=== PATIENT | male | born 1985 | race Caucasian/White ===

== ENCOUNTER → 2016-11-10 | Outpatient (CLI) | payer BC ==
[~2016-11-10] MED LIST: AMOX250S5 PO; HYDR118S PO; tetracaine lollipops PO
--- NOTE | 2016-11-10 09:57 | Diagnostic Imaging Report ---
EXAMINATION: Ultrasound of the aorta. INDICATION: Pulsatile feeling in the back while working out. FINDINGS: The proximal abdominal aorta is obscured. The mid abdominal aorta is 1.9 cm and the distal abdominal aorta is 1.3 cm in caliber. The right common iliac artery is 0.8 and the left common iliac artery is 0.8 cm in caliber. Color flow is demonstrated in the aorta and common iliac arteries. IMPRESSION: Unremarkable exam. Dictated by: Dictated on workstation # [id number]
== END ==
LOC: RAD 08:55
PROVIDERS: ATTEND Family Medicine
DX: D23.11 Other benign neoplasm of skin of right eyelid, including canthus (principal); R00.2 Palpitations
CPT/HCPCS: 76775

== ENCOUNTER → 2016-12-02 | Outpatient (CLI) | payer BC ==
--- NOTE | 2016-12-02 14:13 | Diagnostic Imaging Report ---
PROCEDURE: CT chest and abdomen without contrast. TECHNIQUE: Axial images were obtained from the thoracic inlet through the iliac crest without the administration of intravenous contrast. INDICATION: Atypical chest pain. FINDINGS: The unopacified thoracic aorta has a normal morphology and normal caliber and showed normal tapering distally. There is no mediastinal, pleural or pericardial hemorrhage or other fluid. The lungs and cells are clear. No mass or infiltrate. No pulmonary nodule. Hilar and mediastinal evaluation is limited by the absence of contrast. No findings to suggest adenopathy or abnormal soft tissue within the spaces. There is no thoracic calcified atherosclerotic disease. ABDOMEN: The abdominal aorta is of normal caliber. The vessel showed normal tapering distally in the common iliacs nonaneurysmal. Vascular patency cannot be addressed owing to the absence of contrast. The unopacified liver, gallbladder, spleen, adrenals, pancreas all negative. There is a 2 mm nonobstructing stone within a right renal upper pole calyx. The kidney is otherwise normal. There is no hydronephrosis. IMPRESSION: Normal appearance of the unopacified thoracoabdominal nonaneurysmal aorta. Nonobstructing right renal calculus. No acute appearing abnormality. Dictated by: Dictated on workstation # [id number]
== END ==
LOC: RAD 12:39
PROVIDERS: ATTEND Family Medicine
DX: R07.89 Other chest pain (principal)
CPT/HCPCS: 71250; 74150

== ENCOUNTER 2018-03-07 04:07 | Emergency (ER) | payer BC, OTHER ==
[~2018-03-07] VITALS: Ht 180.3 cm; Wt 86.2 kg
--- NOTE | 2018-03-07 04:25 | ED Chest Pain ---
General Chief Complaint: Chest Pain Stated Complaint: CP, LIGHTHEADED Nursing Triage Note: Pt c/o CP starting yesterday morning upon waking. Pt reports pain is in center/left chest. Pt states pain is worse when leaning forward and taking a deep breath. Nursing Sepsis Screen: No Definite Risk Source: patient Exam Limitations: no limitations History of Present Illness Date Seen by Provider: Mar 07, 2018 Time Seen by Provider: 04:10 Initial Comments C/O LEFT MID CHEST PAIN SINCE WAKING YESTERDAY MORNING STATES HE SAT UP AND LEANED FORWARD IN BED AND PAIN BEGAN PAIN HAS BEEN CONSTANT, AND IS MUCH WORSE WITH LEANING FORWARD OR TAKING A DEEP BREATH STATES "WHEN I LEAN FORWARD, IT FEELS LIKE MY HEART IS BEING CRUSHED" RATES PAIN 8/10 AT WORST, 3-4/10 CONSTANT. SLIGHT SHORTNESS OF BREATH SLIGHT LIGHTHEADEDNESS NO FEVER NO COUGH OR URI SYMPTOMS NO SWEATS NO SWELLING IN LEGS/ FEET OR PAIN IN CALVES HAD "LITTLE" PALPITATIONS--HAS HISTORY OF SAME FOR YEARS PT LATER STATES THAT HE "INJURED" HIS BACK LAST WEEK--DID HEAVY LIFTING ON WEDNESDAY, WEDNESDAY AND WEDNESDAY AND BACK WAS SORE TOOK 2 IBUPROFEN ON WEDNESDAY MORNING AND HIS BACK HAS BEEN FINE SINCE PT REPEATS THAT THIS PAIN IN HIS CHEST "COULDN'T BE RELATED" TO THAT Allergies and Home Medications Allergies Coded Allergies: NKANo Known Allergies (Verified Allergy, Unknown, 03/22/06) Home Medications Amoxicillin 250 Mg/5 Ml Susp.recon, 2 TSP PO BID, (Reported) Hydrocodone Bit/Acetaminophen 120 Ml Solution, 5-10 ML PO Q4H PRN, (Reported) Methylprednisolone 4 Mg Tab.ds.pk, 4 MG PO UD Prescribed by: LIV PENN on 03/07/18 0550 [tetracaine lollipops] , 0.5-1 % PO PRN, (Reported) Patient Home Medication List Home Medication List Reviewed: Yes Review of Systems Constitutional: see HPI EENTM: No Symptoms Reported Respiratory: See HPI, Shortness of Air Cardiovascular: See HPI, Chest Pain; Denies Edema, Denies Irregular Heart Rate ; Lightheadedness, Palpitations; Denies Syncope Gastrointestinal: No Symptoms Reported Genitourinary: No Symptoms Reported Musculoskeletal: see HPI Skin: no symptoms reported Psychiatric/Neurological: No Symptoms Reported Endocrine: No Symptoms Reported Hematologic/Lymphatic: No Symptoms Reported Past Rwwrrgt-Wvkbcn-Rluxxy Hx Patient Social History Alcohol Use: Rarely Uses Recreational Drug Use: No (THC "ONCE" ) Smoking Status: Never a Smoker Recent Foreign Travel: No Contact w/Someone Who Travel: No Recent Infectious Disease Expo: No Recent Hopitalizations: No Seasonal Allergies Seasonal Allergies: No Past Medical History Surgeries: No Respiratory: No Cardiac: No Neurological: Yes (HX SEIZURES, DOES NOT TAKE MEDICATION FOR THEM--FIRST SEIZURE 10 YEARS AGO, SELF DC'D MEDICATIONS AFTER A SHORT PERIOD OF TIME.STATES LAST SEIZURE WAS 7-8 YEARS AGO. ) Seizure Disorder Reproductive Disorders: No Sexually Transmitted Disease: No Gastrointestinal: No Musculoskeletal: No Endocrine: No HEENT: No Cancer: No Psychosocial: No Integumentary: No Blood Disorders: No Physical Exam Vital Signs Vital Signs - First Documented 03/07/18 04:11 Temp 95.5 Pulse 58 Resp 18 B/P (MAP) 156/101 (119) Pulse Ox 98 O2 Delivery Room Air Capillary Refill : Less Than 3 Seconds Height, Weight, BMI Height: 5'11.00" Weight: 190lbs. oz. 86.625394so; BMI Method:Stated General Appearance: No Apparent Distress, WD/WN, Other (DOESN OT APPEAR TO BE IN ANY DISCOMFORT WHATSOEVER) HEENT: PERRL/EOMI Neck: Full Range of Motion, Normal Inspection, Non Tender, Supple; No Carotid Bruit, No JVD Respiratory: Chest Non Tender, Normal Breath Sounds, No Accessory Muscle Use, No Respiratory Distress Cardiovascular: Regular Rate, Rhythm, No Edema, No JVD, No Murmur, Normal Peripheral Pulses Gastrointestinal: Normal Bowel Sounds, No Organomegaly, No Pulsatile Mass, Non Tender, Soft Extremity: Normal Capillary Refill, Normal Inspection, Normal Range of Motion, Non Tender, No Calf Tenderness, No Pedal Edema Neurologic/Psychiatric: Alert, Oriented x3, No Motor/Sensory Deficits, Normal Mood/Affect, 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 Skin: Normal Color, Warm/Dry Progress/Results/Core Measures Results/Orders Lab Results Laboratory Tests Test 03/07/18 04:19 Range/Units White Blood Count 6.1 4.3-11.0 10^3/uL Red Blood Count 4.72 4.35-5.85 10^6/uL Hemoglobin 14.8 13.3-17.7 G/DL Hematocrit 42 40-54 % Mean Corpuscular Volume 88 80-99 FL Mean Corpuscular Hemoglobin 31 25-34 PG Mean Corpuscular Hemoglobin Concent 36 32-36 G/DL Red Cell Distribution Width 13.1 10.0-14.5 % Platelet Count 153 130-400 10^3/uL Mean Platelet Volume 10.1 7.4-10.4 FL Neutrophils (%) (Auto) 42 42-75 % Lymphocytes (%) (Auto) 43 12-44 % Monocytes (%) (Auto) 9 0-12 % Eosinophils (%) (Auto) 5 0-10 % Basophils (%) (Auto) 0 0-10 % Neutrophils # (Auto) 2.6 1.8-7.8 X 10^3 Lymphocytes # (Auto) 2.6 1.0-4.0 X 10^3 Monocytes # (Auto) 0.5 0.0-1.0 X 10^3 Eosinophils # (Auto) 0.3 0.0-0.3 10^3/uL Basophils # (Auto) 0.0 0.0-0.1 10^3/uL Prothrombin Time 13.4 12.2-14.7 SEC INR Comment 1.0 0.8-1.4 Activated Partial Thromboplast Time 30 24-35 SEC Sodium Level 140 135-145 MMOL/L Potassium Level 4.3 3.6-5.0 MMOL/L Chloride Level 106 98-107 MMOL/L Carbon Dioxide Level 24 21-32 MMOL/L Anion Gap 10 5-14 MMOL/L Blood Urea Nitrogen 19 H 7-18 MG/DL Creatinine 1.11 0.60-1.30 MG/DL Estimat Glomerular Filtration Rate > 60 BUN/Creatinine Ratio 17 Glucose Level 88 70-105 MG/DL Calcium Level 9.7 8.5-10.1 MG/DL Magnesium Level 2.3 1.8-2.4 MG/DL Total Bilirubin 0.5 0.1-1.0 MG/DL Aspartate Amino Transf (AST/SGOT) 20 5-34 U/L Alanine Aminotransferase (ALT/SGPT) 18 0-55 U/L Alkaline Phosphatase 57 40-136 U/L Total Creatine Kinase 81 30-200 U/L Creatine Kinase MB 0.9 <6.6 NG/ML Troponin I < 0.30 <0.30 NG/ML B-Type Natriuretic Peptide < 10.0 <100.0 PG/ML Total Protein 7.1 6.4-8.2 GM/DL Albumin 4.7 H 3.2-4.5 GM/DL Amylase Level 57 25-125 U/L Lipase 27 8-78 U/L My Orders Orders - ISAMARLIV Collado Amylase (03/07/18 04:20) Cbc With Automated Diff (03/07/18 04:20) Comprehensive Metabolic Panel (03/07/18 04:20) Creatine Kinase (03/07/18 04:20) Creatine Kinase Mb (03/07/18 04:20) Lipase (03/07/18 04:20) Partial Thromboplastin Time (03/07/18 04:20) Protime With Inr (03/07/18 04:20) Troponin I (03/07/18 04:20) Chest 1 View, Ap/Pa Only (03/07/18 04:20) Ekg Tracing (03/07/18 04:20) Aspirin Chewable Tablet (Baby Aspirin Ch (03/07/18 04:30) BNP (03/07/18 04:20) Monitor-Rhythm Ecg Trace Only (03/07/18 04:20) Magnesium (03/07/18 04:20) Ct Angio Chest W (03/07/18 04:26) Ketorolac Injection (Toradol Injection) (03/07/18 04:45) Iohexol Injection (Omnipaque 350 Mg/Ml 1 (03/07/18 05:30) Ns (Ivpb) (Sodium Chloride 0.9%) (03/07/18 05:30) Medications Given in ED Current Medications Medications Dose Ordered Sig/Merlin Route Start Time Stop Time Status Last Admin Dose Admin Aspirin 324 mg ONCE ONCE PO 03/07/18 04:30 03/07/18 04:31 DC 03/07/18 04:28 324 MG Iohexol 150 ml ONCE ONCE IV 03/07/18 05:30 03/07/18 05:31 DC 03/07/18 05:27 125 ML Sodium Chloride 250 ml ONCE ONCE IV 03/07/18 05:30 03/07/18 05:31 DC 03/07/18 05:27 80 ML Vital Signs/I&O 03/07/18 03/07/18 03/07/18 04:11 04:11 06:10 Temp 95.5 95.5 Pulse 58 53 Resp 18 18 B/P (MAP) 156/101 (119) 114/83 (119) Pulse Ox 98 98 O2 Delivery Room Air Room Air Room Air Blood Pressure Mean: 119 Progress Progress Note : Progress Note REFUSED TORADOL OR ANY PAIN MEDICATIONS, STATES HE "DIDN'T WANT TO HURT ANYTHING IF HE MOVED AND NOT FEEL IT" AT DISMISSAL, PT NOW STATES HE HAS HAD "SHARP PAINS THAT FEEL LIKE SOMETHING IS RIPPING APART" IN HIS CHEST "IN MY HEART" WHEN HE LEANS OVER OR TAKES A DEEP BREATH "HIS WHOLE LIFE" BUT THIS HAS LASTED LONGER THAN NORMAL--NORMALLY LASTS "15-30 SECONDS AT A TIME" HAS ALSO HAD "PALPITATIONS" "ALL HIS LIFE" HAS NEVER SOUGHT CARE FOR THESE PROBLEMS Initial ECG Impression Date: Mar 07, 2018 Initial ECG Impression Time: 04:17 Initial ECG Rate: 54 Initial ECG Rhythm: Normal Sinus Initial ECG Comparisson: No Previous ECG Available Diagnostic Imaging Comments CXR--NO ACUTE PROCESS, PENDING RADIOLOGIST REVIEW CT CHEST ANGIOGRAM--NO P.E. OR OTHER ACUTE PROCESS, PER [facility] VIA FAX @ [phone] Reviewed: Reviewed by Me Departure Impression Primary Impression: Chest pain Disposition: 01 HOME, SELF-CARE Condition: Stable Departure-Patient Inst. Referrals: FACUNDO PENA MD (PCP/Family) Primary Care Physician Patient Instructions: Chest Pain That Is Not Caused by the Heart (DC), Pleuritic Chest Pain (DC), Chest Pain (DC) Add. Discharge Instructions: HOME, REST FOLLOW UP WITH DR. PENA IN 1-2 DAYS FOR FURTHER CARE RETURN TO ER IF WORSE All discharge instructions reviewed with patient and/or family. Voiced understanding. Scripts Methylprednisolone (Medrol) 4 Mg Tab.ds.pk 4 MG PO UD, #1 PKG Prov: LIV PENN DO 03/07/18 LIV PENN DO Mar 07, 2018 04:25
[2018-03-07 04:30] LABS: BASOPHILS % (AUTO) 0 % (0-10); EOSINOPHILS # (AUTO) 0.3 10^3/uL (0.0-0.3); EOSINOPHILS % (AUTO) 5 % (0-10); HEMATOCRIT 42 % (40-54); HEMOGLOBIN 14.8 G/DL (13.3-17.7); LYMPHOCYTES # (AUTO) 2.6 X 10^3 (1.0-4.0); LYMPHOCYTES % (AUTO) 43 % (12-44); MEAN CORPUSCULAR HEMOGLOBIN 31 PG (25-34); MEAN CORPUSCULAR HGB CONC 36 G/DL (32-36); MEAN CORPUSCULAR VOLUME 88 FL (80-99); MEAN PLATELET VOLUME 10.1 FL (7.4-10.4); MONOCYTES # (AUTO) 0.5 X 10^3 (0.0-1.0); MONOCYTES % (AUTO) 9 % (0-12); NEUTROPHILS # (AUTO) 2.6 X 10^3 (1.8-7.8); NEUTROPHILS % (AUTO) 42 % (42-75); PLATELET COUNT 153 10^3/uL (130-400); RED BLOOD COUNT 4.72 10^6/uL (4.35-5.85); RED CELL DISTRIBUTION WIDTH 13.1 % (10.0-14.5); WHITE BLOOD COUNT 6.1 10^3/uL (4.3-11.0)
[2018-03-07] MEDS ORDERED: ASPIRIN 81 MG CHEW (CHILDREN'S ASA) PO ONE (04:30)
[2018-03-07] MEDS ORDERED: KETOROLAC 30 MG/ML VIAL IVP ONE (04:45)
[2018-03-07 04:46] LABS: PROTHROMBIN TIME PATIENT 13.4 SEC (12.2-14.7)
[2018-03-07 04:53] LABS: ALANINE AMINOTRANSFERASE 18 U/L (0-55); ALBUMIN 4.7 GM/DL (3.2-4.5); ALKALINE PHOSPHATASE 57 U/L (40-136); AMYLASE 57 U/L (25-125); BILIRUBIN,TOTAL 0.5 MG/DL (0.1-1.0); BUN/CREATININE RATIO 17; CALCIUM 9.7 MG/DL (8.5-10.1); CARBON DIOXIDE 24 MMOL/L (21-32); CHLORIDE 106 MMOL/L (98-107); CREATINE KINASE 81 U/L (30-200); CREATININE SERUM 1.11 MG/DL (0.60-1.30); GFR ESTIMATED > 60; GLUCOSE 88 MG/DL (70-105); LIPASE 27 U/L (8-78); MAGNESIUM 2.3 MG/DL (1.8-2.4); POTASSIUM 4.3 MMOL/L (3.6-5.0); SODIUM 140 MMOL/L (135-145); TOTAL PROTEIN 7.1 GM/DL (6.4-8.2)
[2018-03-07 05:00] LABS: CREATINE KINASE MB 0.9 NG/ML (<6.6)
[2018-03-07] MEDS ORDERED: NS 250 ML (IVPB) BAG IV ONE (05:30)
[2018-03-07] MEDS ORDERED: IOHEXOL 350 MG/ML 150 ML (OMNIPAQUE 350) VIAL IV ONE (05:30)
[2018-03-07] MEDS ORDERED: METH4TAB PO (05:50)
[2018-03-07 06:10] VITALS: BP 114/83
--- NOTE | 2018-03-07 06:42 | Diagnostic Imaging Report ---
PROCEDURE: CT angiography of the chest with contrast. TECHNIQUE: Multiple contiguous axial images were obtained through the chest after uneventful bolus administration of intravenous contrast. Reconstructed CTA MIP acquisitions were also performed. INDICATION: Chest pain. COMPARISON: Chest radiograph 03/07/2018. FINDINGS: No pulmonary artery filling defects. No thoracic aortic aneurysm or dissection. Normal heart size. No pericardial effusion. No mediastinal, hilar or axillary lymphadenopathy. The lungs are clear. No endobronchial lesions. No pleural effusion or pneumothorax. No acute osseous findings. The visualized upper abdominal contents are unremarkable. IMPRESSION: 1. No thoracic aortic aneurysm or dissection. No pulmonary emboli. 2. No acute CT findings in the chest. Dictated by: Dictated on workstation # [id number]
--- NOTE | 2018-03-07 07:26 | Diagnostic Imaging Report ---
EXAM: CHEST 1 VIEW, AP/PA ONLY INDICATION: Chest pain. COMPARISON: CT chest 12/02/2016. FINDINGS: Normal heart size and pulmonary vascularity. No focal pulmonary opacity, pleural effusion or pneumothorax. Osseous structures are unremarkable. IMPRESSION: Negative chest. Dictated by: Dictated on workstation # [id number]
--- OUTSIDE RECORDS SUMMARY | 2018-03-07 21:34 | XMS REPORT | Continuity of Care Document ---
Author Author [facility] Address Unknown Phone Unavailable Allergies Active Description Code Type Severity Reaction Onset Reported/Identified Relationship to Patient Clinical Status Yes NKANo Known Allergies NKA Miscellaneous Allergy Unknown N/A 03/22/2006 Medications There is no data. Problems Date Dx Coded Attending Type Code Diagnosis Diagnosed By 06/07/2014 ADAM RUBIO APRN V74.5 STD SCREEN 11/25/2016 FACUNDO PENA MD Ot D23.11 OTH BENIGN NEOPLASM SKIN/ RIGHT EYELID, 11/25/2016 FACUNDO PENA MD Ot R00.2 PALPITATIONS 12/17/2016 FACUNDO PENA MD Ot R07.89 OTHER CHEST PAIN Procedures Code [place] [address] ROUTINE VENIPUNCTURE 06/07/2014 27557 [facility]PH[facility]IS[facility] 06/07/2014 18571 HIV ([facility]) 06/07/2014 57022 GC/CHLAM URINE ([facility]) 06/07/2014 Results There is no data. Encounters ACCT No. Visit Date/Time Discharge Status Pt. Type Provider Facility Loc./Unit Complaint [id number] 06/07/2014 15:16:00 06/07/2014 23:59:59 CLS Outpatient ADAM RUBIO APRN [id number] 12/02/2016 12:39:00 12/02/2016 23:59:59 CLS Outpatient FACUNDO PENA MD [facility] RAD R07.89 [id number] 11/10/2016 08:55:00 11/10/2016 23:59:59 CLS Outpatient FACUNDO PENA MD [facility] RAD PAPILLOMA OF EYELID [id number] 03/22/2014 11:39:00 03/22/2014 23:59:59 CLS Outpatient
== END 2018-03-07 06:10 | disposition home or self-care (01) ==
LOC: EDUNIT# 04:07 → ER 04:09
DX: R07.89 Other chest pain (principal); G40.909 Epilepsy, unspecified, not intractable, without status epilepticus; Z79.52 Long term (current) use of systemic steroids
CPT/HCPCS: 36415; 71045; 71275; 80053; 82150; 82550; 82553; 83690; 83735; 83880; 84484; 85025; 85610; 85730; 93005; 93041

== ENCOUNTER → 2018-05-30 | Outpatient (CLI) | payer BC ==
[~2018-05-30] MED LIST changes: +METH4TAB PO
--- NOTE | 2018-05-30 08:55 | Diagnostic Imaging Report ---
Indication: Hip pain x1 year AP view pelvis and 2 additional views of the right and left hip were obtained. Pelvic ring is intact. Joint spaces hips are well-maintained. Articular surfaces are smooth. There is no fracture. Impression: Negative pelvis and bilateral hips. Dictated by: Dictated on workstation # [id number]
== END ==
LOC: RAD 08:24
PROVIDERS: ATTEND Orthopaedic Surgery
DX: M25.551 Pain in right hip (principal); M25.552 Pain in left hip
CPT/HCPCS: 73523

== ENCOUNTER → 2019-03-31 | Outpatient (CLI) | payer BC ==
--- NOTE | 2019-03-31 17:17 | Diagnostic Imaging Report ---
EXAMINATION: Magnetic resonance imaging of the pelvis and bilateral hips without contrast DATE: March 31, 2019. COMPARISON: Pelvic and bilateral hip radiographs, May 30, 2018. INDICATION: 33-year-old male, bilateral hip pain. TECHNIQUE: Magnetic Resonance Imaging sequences were performed of the pelvis and bilateral hips without contrast. TENDONS AND MUSCLES: The gluteus bhargav muscles and their origins and insertions are intact bilaterally. The tendons and muscles of the greater trochanter - gluteus minimus, piriformis and gluteus medius - are intact, bilaterally. Both common hamstring attachments on the ischial tuberosities are intact and the extensor muscles of the thigh are intact. The visualized portions of the flexors and adductor muscles of the thigh and their attachments on the pelvis and hips are intact. Both iliopsoas and iliacus muscles are intact. The bilateral iliopsoas tendons are intact. HIPS AND SACROILIAC JOINTS: There are osseous protuberances at the bilateral femoral head neck junctions. There is no hip joint effusion. There is no identified fluid-filled labral tear or paralabral cyst on non-arthrogram evaluation. The sacroiliac joints are unremarkable. LUMBAR SPINE: The visible portions of the lumbar spine are unremarkable on limited assessment. BONE: The bone marrow signal is within normal limits. Specifically, negative for fracture, osteomyelitis, osteonecrosis, or marrow replacing process. BURSAE AND SOFT TISSUES: The bursae and soft tissues surrounding the pelvis and hips are within normal limits. IMPRESSION: 1. Osseous protuberances at the bilateral femoral head neck junctions which are morphologic features which may be associated with cam-type femoral acetabular impingement which would be a clinical diagnosis. No discretely identified labral tear or paralabral cyst on non-arthrogram evaluation. 2. No hip joint effusion. 3. Intact muscles and tendons. 4. No acute fracture, bone contusion or evidence of osteonecrosis. Dictated by: Dictated on workstation # [id number]
== END ==
LOC: RAD 15:08
PROVIDERS: ATTEND Family Medicine
DX: M25.551 Pain in right hip (principal); M25.552 Pain in left hip
CPT/HCPCS: 72195

== ENCOUNTER 2019-07-06 04:38 | Emergency (ER) | payer BC ==
[~2019-07-06] VITALS: Ht 180 cm; Wt 82.0 kg
[2019-07-06 05:01] LABS: BILIRUBIN,URINE NEGATIVE (NEGATIVE); CLARITY,URINE CLEAR; COLOR,URINE YELLOW; GLUCOSE, URINE (UA) NEGATIVE (NEGATIVE); KETONES,URINE NEGATIVE (NEGATIVE); LEUKOCYTE ESTERASE ,URINE NEGATIVE (NEGATIVE); NITRITE,URINE NEGATIVE (NEGATIVE); PROTEIN,URINE NEGATIVE (NEGATIVE)
[2019-07-06 05:08] LABS: BACTERIA,URINE TRACE /HPF; SQUAMOUS EPITHELIAL CELL,UR RARE /HPF; WBC,URINE RARE /HPF
[2019-07-06 05:11] LABS: BASOPHILS # (AUTO) 0.1 10^3/uL (0.0-0.1); BASOPHILS % (AUTO) 0 % (0-10); EOSINOPHILS # (AUTO) 0.3 10^3/uL (0.0-0.3); EOSINOPHILS % (AUTO) 3 % (0-10); HEMATOCRIT 45 % (40-54); LYMPHOCYTES % (AUTO) 43 % (12-44); MEAN CORPUSCULAR HEMOGLOBIN 31 PG (25-34); MEAN CORPUSCULAR HGB CONC 36 G/DL (32-36); MEAN CORPUSCULAR VOLUME 86 FL (80-99); MEAN PLATELET VOLUME 9.8 FL (7.4-10.4); MONOCYTES # (AUTO) 1.3 X 10^3 (0.0-1.0); MONOCYTES % (AUTO) 11 % (0-12); NEUTROPHILS # (AUTO) 5.1 X 10^3 (1.8-7.8); NEUTROPHILS % (AUTO) 44 % (42-75); PLATELET COUNT 219 10^3/uL (130-400); RED CELL DISTRIBUTION WIDTH 12.7 % (10.0-14.5); WHITE BLOOD COUNT 11.7 10^3/uL (4.3-11.0)
[2019-07-06 05:26] LABS: ALANINE AMINOTRANSFERASE 25 U/L (0-55); ALBUMIN 4.7 GM/DL (3.2-4.5); ALKALINE PHOSPHATASE 62 U/L (40-136); BILIRUBIN,TOTAL 0.8 MG/DL (0.1-1.0); BUN/CREATININE RATIO 14; CALCIUM 9.4 MG/DL (8.5-10.1); CARBON DIOXIDE 21 MMOL/L (21-32); CHLORIDE 104 MMOL/L (98-107); CREATININE SERUM 0.96 MG/DL (0.60-1.30); GFR ESTIMATED > 60; GLUCOSE 126 MG/DL (70-105); POTASSIUM 3.6 MMOL/L (3.6-5.0); SODIUM 140 MMOL/L (135-145); TOTAL PROTEIN 7.2 GM/DL (6.4-8.2)
--- NOTE | 2019-07-06 05:29 | ED Abdominal Pain ---
General Chief Complaint: Abdominal/GI Problems Stated Complaint: RIGHT SIDE PAIN Nursing Triage Note: Pt ambulates to RM 9, guarding right side. Pt has c/o RLQ abd pain that started approx 2330 last night. Pt reports fever/chills, nausea, pain is worse with eating. Sepsis Screen: No Definite Risk Source of Information: Patient Exam Limitations: No Limitations (KATIE NAIDU) History of Present Illness Date Seen by Provider: Jul 06, 2019 Time Seen by Provider: 05:15 Initial Comments Patient presents to ER by private conveyance with chief complaint of intractable abdominal pain 10 out of 10 in his right lower quadrant radiating through to his right flank and right, lower back. The pain started a couple hours ago and intensified after he ate. He thinks he has appendicitis. He does have a history of kidney stones and did have some hematuria dysuria a couple days ago. He's having nausea and did vomit once this morning. He has not taken anything for the pain yet. He has not had any fevers or chills. (KATIE NAIDU) Allergies and Home Medications Allergies Coded Allergies: KELSIEANo Known Allergies (Verified Allergy, Unknown, 03/22/06) Home Medications Amoxicillin 250 Mg/5 Ml Susp.recon, 2 TSP PO BID, (Reported) Hydrocodone Bit/Acetaminophen 120 Ml Solution, 5-10 ML PO Q4H PRN, (Reported) Methylprednisolone 4 Mg Tab.ds.pk, 4 MG PO UD Prescribed by: LIV PENN on 03/07/18 0550 [tetracaine lollipops] , 0.5-1 % PO PRN, (Reported) Patient Home Medication List Home Medication List Reviewed: Yes (SANIA RENE MD) Review of Systems Review of Systems Constitutional: see HPI; No chills, No fever EENTM: No Symptoms Reported Gastrointestinal: Nausea, Vomiting Genitourinary: Flank Pain, Hematuria Musculoskeletal: no symptoms reported (SANIA RENE MD) All Other Systems Reviewed Negative Unless Noted: Yes (SANIA RENE MD) Past Lvlugku-Hghinc-Lnzlwk Hx Past Med/Social Hx: Reviewed Nursing Past Med/Soc Hx (SANIA RENE MD) Patient Social History Recent Foreign Travel: No Contact w/Someone Who Travel: No Recent Infectious Disease Expo: No Recent Hopitalizations: No (KATIE NAIDU) Seasonal Allergies Seasonal Allergies: No (KATIE NAIDU) Past Medical History Surgeries: No Respiratory: No Cardiac: No Neurological: Yes Seizure Disorder Reproductive Disorders: No Sexually Transmitted Disease: No Gastrointestinal: No Musculoskeletal: No Endocrine: No HEENT: No Cancer: No Psychosocial: No Integumentary: No Blood Disorders: No (KATIE NAIDU) Family Medical History Reviewed Nursing Family Hx (SANIA RENE MD) No Pertinent Family Hx (SANIA RENE MD) Physical Exam Vital Signs Vital Signs - First Documented 07/06/19 04:50 Temp 36.5 Pulse 80 Resp 20 B/P (MAP) 178/116 (136) Pulse Ox 99 O2 Delivery Room Air (SANIA RENE MD) Vital Signs Capillary Refill : Greater Than 3 Seconds (KATIE NAIDU) Height/Weight/BMI Height: 5'11.00" Weight: 190lbs. oz. 86.130146wn; 25.00 BMI Method:Stated (KATIE NAIDU) General Appearance: WD/WN, moderate distress Neck: full range of motion, supple Respiratory: lungs clear, normal breath sounds Cardiovascular: regular rate, rhythm, no murmur Gastrointestinal: non tender, soft Extremities: non-tender, normal inspection Back: normal inspection, no CVA tenderness, no vertebral tenderness Neurologic/Psychiatric: alert, oriented x 3 Skin: normal color, warm/dry (SANIA RENE MD) Progress/Results/Core Measures Results/Orders Lab Results Laboratory Tests Test 07/06/19 04:55 07/06/19 04:58 Range/Units Urine Color YELLOW Urine Clarity CLEAR Urine pH 6.0 5-9 Urine Specific [place] 1.020 1.016-1.022 Urine Protein NEGATIVE NEGATIVE Urine Glucose (UA) NEGATIVE NEGATIVE Urine Ketones NEGATIVE NEGATIVE Urine Nitrite NEGATIVE NEGATIVE Urine Bilirubin NEGATIVE NEGATIVE Urine Urobilinogen 0.2 < = 1.0 MG/DL Urine Leukocyte Esterase NEGATIVE NEGATIVE Urine RBC (Auto) 3+ H NEGATIVE Urine RBC 10-25 H /HPF Urine WBC RARE /HPF Urine Squamous Epithelial Cells RARE /HPF Urine Crystals NONE /LPF Urine Bacteria TRACE /HPF Urine Casts NONE /LPF Urine Mucus MODERATE H /LPF Urine Culture Indicated NO Urine Opiates Screen NEGATIVE NEGATIVE Urine Oxycodone Screen NEGATIVE NEGATIVE Urine Methadone Screen NEGATIVE NEGATIVE Urine Propoxyphene Screen NEGATIVE NEGATIVE Urine Barbiturates Screen NEGATIVE NEGATIVE Ur Tricyclic Antidepressants Screen NEGATIVE NEGATIVE Urine Phencyclidine Screen NEGATIVE NEGATIVE Urine Amphetamines Screen NEGATIVE NEGATIVE Urine Methamphetamines Screen NEGATIVE NEGATIVE Urine Benzodiazepines Screen NEGATIVE NEGATIVE Urine Cocaine Screen NEGATIVE NEGATIVE Urine Cannabinoids Screen NEGATIVE NEGATIVE White Blood Count 11.7 H 4.3-11.0 10^3/uL Red Blood Count 5.20 4.35-5.85 10^6/uL Hemoglobin 16.0 13.3-17.7 G/DL Hematocrit 45 40-54 % Mean Corpuscular Volume 86 80-99 FL Mean Corpuscular Hemoglobin 31 25-34 PG Mean Corpuscular Hemoglobin Concent 36 32-36 G/DL Red Cell Distribution Width 12.7 10.0-14.5 % Platelet Count 219 130-400 10^3/uL Mean Platelet Volume 9.8 7.4-10.4 FL Neutrophils (%) (Auto) 44 42-75 % Lymphocytes (%) (Auto) 43 12-44 % Monocytes (%) (Auto) 11 0-12 % Eosinophils (%) (Auto) 3 0-10 % Basophils (%) (Auto) 0 0-10 % Neutrophils # (Auto) 5.1 1.8-7.8 X 10^3 Lymphocytes # (Auto) 5.0 H 1.0-4.0 X 10^3 Monocytes # (Auto) 1.3 H 0.0-1.0 X 10^3 Eosinophils # (Auto) 0.3 0.0-0.3 10^3/uL Basophils # (Auto) 0.1 0.0-0.1 10^3/uL Sodium Level 140 135-145 MMOL/L Potassium Level 3.6 3.6-5.0 MMOL/L Chloride Level 104 98-107 MMOL/L Carbon Dioxide Level 21 21-32 MMOL/L Anion Gap 15 H 5-14 MMOL/L Blood Urea Nitrogen 13 7-18 MG/DL Creatinine 0.96 0.60-1.30 MG/DL Estimat Glomerular Filtration Rate > 60 BUN/Creatinine Ratio 14 Glucose Level 126 H 70-105 MG/DL Calcium Level 9.4 8.5-10.1 MG/DL Corrected Calcium 8.5-10.1 MG/DL Total Bilirubin 0.8 0.1-1.0 MG/DL Aspartate Amino Transf (AST/SGOT) 19 5-34 U/L Alanine Aminotransferase (ALT/SGPT) 25 0-55 U/L Alkaline Phosphatase 62 40-136 U/L C-Reactive Protein High Sensitivity 0.03 0.00-0.50 MG/DL Total Protein 7.2 6.4-8.2 GM/DL Albumin 4.7 H 3.2-4.5 GM/DL (SANIA RENE MD) My Orders Orders - SANIA RENE MD Ct Abd/Pelvis Wo(Kidney Stone) (07/06/19 06:25) Fentanyl Injection (Sublimaze Injection (07/06/19 06:29) Ed Iv/Invasive Line Start (07/06/19 06:29) Lactated Ringers (Lr 1000 Ml Iv Solution (07/06/19 06:29) Fentanyl Injection (Sublimaze Injection (07/06/19 08:04) Lortab 7.5 Mg Po (07/06/19 08:24) (SANIA RENE MD) Medications Given in ED Current Medications Medications Dose Ordered Sig/Merlin Route Start Time Stop Time Status Last Admin Dose Admin Ketorolac Tromethamine 30 mg ONCE ONCE IVP 07/06/19 05:30 07/06/19 05:31 DC 07/06/19 05:32 30 MG Lactated Ringer's 1,000 ml @ 0 mls/hr Q0M ONCE IV 07/06/19 06:29 07/06/19 06:31 DC 07/06/19 06:40 0 MLS/HR Ondansetron HCl 8 mg ONCE ONCE IVP 07/06/19 05:30 07/06/19 05:31 DC 07/06/19 05:32 8 MG (SANIA RENE MD) Vital Signs/I&O 07/06/19 04:50 Temp 36.5 Pulse 80 Resp 20 B/P (MAP) 178/116 (136) Pulse Ox 99 O2 Delivery Room Air (SANIA RENE MD) Blood Pressure Mean: 136 POS Progress Progress Note : Progress Note Assumed care the patient at 0615 pending labs. 0630: Labs complete and UA resulted. Does have blood in the urine. We will get CT of the abdomen and pelvis kidney stone protocol. Fentanyl 50 g IV for pain. My initial evaluation was delayed as the patient had got into the shower due to pain. States his pain is a 2. Doing much better after Toradol but we will go and give fentanyl to help control better. 0700: Patient had jumped back into the shower when coordinate measuring machine technician had come down to get him and he is refusing to go CT until he gets his pain medicine which was available and given. Unfortunately, CT will be delayed due to another emergent CT now and he was not ready when they were. We will get him into CT as soon as possible. Monitor patient. 0820: Repeat fentanyl 75 g IV given as he was having increased pain. CT results noted. Does have small stone distally. This should pass. All of this was discussed with the patient and he is feeling a little better now. We will give a hydrocodone dose prior to discharge but will discharge him home with return precautions. Patient verbalize understanding instructions and agreement with plan. (SANIA RENE MD) Diagnostic Imaging Diagonstic Imaging: CT Plain Films/CT/US/NM/MRI: abdomen, pelvis Comments [facility] POS [place], [place] POS NAME: NOMAN VALE [facility] REC#: [id number] PT STATUS: REG ER : 1985 PHYSICIAN: SANIA RENE MD ADMIT DATE: 07/06/19/ER Signed POSDate of Exam:07/06/19 CT ABD/PELVIS WO(KIDNEY STONE) PROCEDURE: CT urinary tract, rule out kidney stone. TECHNIQUE: Multiple contiguous axial images were obtained through the abdomen and pelvis without the use of intravenous contrast. Auto Exposure Controls were utilized during the CT exam to meet ALARA standards for radiation dose reduction. INDICATION: Left flank pain. Comparison with 12/02/2016. FINDINGS: The lung bases are clear. There is mild hydronephrosis of the right kidney. The right ureter is dilated. There is a 3 mm calculus at the trigone of the bladder and the right ureter. Left kidney and ureter appear normal. Bowel gas pattern is normal throughout. The liver is normal. Gallbladder and bile ducts are normal. The pancreas and spleen are normal. Adrenal glands are not enlarged. No intra-abdominal adenopathy. No free air or free fluid. No bony abnormalities. IMPRESSION: 1. Obstructive uropathy on the right with 3 mm stone in the distal right ureter. 2. Left kidney appears normal. Dictated by: Dictated on workstation # [id number] Dict: 07/06/19748 Trans: 07/06/19803 [facility] [id number] Interpreted by: LILLY AVILA MD Electronically signed by: LILLY AVILA MD 07/06/19803 Reviewed: Reviewed by Me (SANIA RENE MD) Departure Impression Primary Impression: Ureteral calculus, left Disposition: 01 HOME, SELF-CARE Condition: Stable Departure-Patient Inst. Decision time for Depature: 08:26 (SANIA RENE MD) Referrals: FACUNDO PENA MD (PCP/Family) Primary Care Physician RAMAN DIAZ MD Patient Instructions: How to Strain Your Urine, Kidney Stones (DC) Add. Discharge Instructions: All discharge instructions reviewed with patient and/or family. Voiced understanding. Take medications as directed. You may take ibuprofen 600 mg every 8 hours as needed for pain and I recommended he take this for the next 3 days. He may also take MiraLAX or the generic one capful twice daily for the next 3 days and then one half capful twice daily thereafter to keep stools soft. You may increase or decrease the dose to keep stools in normal range. Drink plenty of fluids. Follow-up with Dr. Diaz early next week if not improved. Strain your urine and watch for the stone. Return for worse pain, weakness, breathing problems, persistent vomiting, fevers or other concerns as needed. Scripts Ondansetron (Ondansetron Odt) 4 Mg Tab.rapdis 4 MG PO Q6H PRN for NAUSEA/VOMITING, #8 TAB 0 Refills Prov: SANIA RENE MD 07/06/19 Hydrocodone Bit/Acetaminophen (LORTAB 7.5 MG TABLET) 1 Ea Tablet 1 EACH PO Q6H, #8 TAB 0 Refills Prov: SANIA RENE MD 07/06/19 Cephalexin (Cephalexin) 500 Mg Tablet 500 MG PO BID, #14 TAB 0 Refills Prov: SANIA RENE MD 07/06/19 KATIE NAIDU Jul 06, 2019 05:29 SANIA LESLIE MD Jul 06, 2019 07:30 POS
[2019-07-06] MEDS ORDERED: KETOROLAC 30 MG/ML VIAL IVP ONE (05:30)
[2019-07-06] MEDS ORDERED: ONDANSETRON 4 MG/2 ML (SDV) Z0FRAN IVP ONE (05:30)
[2019-07-06 05:42] LABS: AMPHETAMINE SCREEN, URINE NEGATIVE (NEGATIVE); BARBITURATE SCREEN URINE NEGATIVE (NEGATIVE); BENZODIAZEPINES SCREEN URINE NEGATIVE (NEGATIVE); CANNABINOID SCREEN, URINE NEGATIVE (NEGATIVE); COCAINE SCREEN URINE NEGATIVE (NEGATIVE); METHADONE STAT NEGATIVE (NEGATIVE); METHAMPHETAMINE SCREEN URINE S NEGATIVE (NEGATIVE); OPIATE SCREEN URINE NEGATIVE (NEGATIVE); OXYCODONE STAT NEGATIVE (NEGATIVE); PROPOXYPHENE STAT NEGATIVE (NEGATIVE); TRICYCLIC ANTIDEPRESSANTS SCRE NEGATIVE (NEGATIVE)
[2019-07-06] MEDS ORDERED: LACTATED RINGERS 1,000 ML IV ONE (06:29)
[2019-07-06] MEDS ORDERED: fentaNYL INJECTION 100 MCG/2 ML AMP IVP STA ×2 (06:29→08:04)
--- NOTE | 2019-07-06 07:56 | Diagnostic Imaging Report ---
PROCEDURE: CT urinary tract, rule out kidney stone. TECHNIQUE: Multiple contiguous axial images were obtained through the abdomen and pelvis without the use of intravenous contrast. Auto Exposure Controls were utilized during the CT exam to meet ALARA standards for radiation dose reduction. INDICATION: Left flank pain. Comparison with 12/02/2016. FINDINGS: The lung bases are clear. There is mild hydronephrosis of the right kidney. The right ureter is dilated. There is a 3 mm calculus at the trigone of the bladder and the right ureter. Left kidney and ureter appear normal. Bowel gas pattern is normal throughout. The liver is normal. Gallbladder and bile ducts are normal. The pancreas and spleen are normal. Adrenal glands are not enlarged. No intra-abdominal adenopathy. No free air or free fluid. No bony abnormalities. IMPRESSION: 1. Obstructive uropathy on the right with 3 mm stone in the distal right ureter. 2. Left kidney appears normal. Dictated by: Dictated on workstation # [id number]
[2019-07-06] MEDS ORDERED: HYDROcodone/APAP 7.5 MG/325 MG (LORTAB, LORCET PLUS) TABLET PO STA (08:24)
[2019-07-06] MEDS ORDERED: CEPH500T PO (08:28)
[2019-07-06] MEDS ORDERED: HYDR-34 PO (08:28)
[2019-07-06] MEDS ORDERED: ONDA4TAB11 PO (08:28)
[2019-07-06 08:50] VITALS: BP 154/93
--- OUTSIDE RECORDS SUMMARY | 2019-07-31 22:43 | XMS REPORT | Encounter Summary ---
Author Author [facility] Organization [facility] Address Unknown Phone Unavailable Care Team Providers Care Geospatial Applications Developer Name Role Phone Gwyn Dill MD PCP Reason for Referral * Consult, Test & Treat (Routine) Referred By Contact Referred To Contact Status Reason Specialty Diagnoses / [place] [address] [place] [address] [place] [address] [place] [address] No Auth Needed Specialty Services Sports Medicine Diagnoses Required Pain Encounter Details Care Team Description [place] [address] [place] [address] [phone] Pain (Primary Dx) 07/05/2019 Orders Only [facility] [address] [place] [address] Social History Date Tobacco Use Types Packs/Day Years Used Never Smoker Smokeless Tobacco: Never Used Drinks/Week oz/Week Comments Alcohol Use Never Alcohol Habits Answer Date Recorded How often do you have a drink containing alcohol? Never 07/05/2019 How many drinks containing alcohol do you have on No t asked a typical day when you are drinking? How often do you have six or more drinks on one Not asked occasion? Sex Assigned at Date Recorded Not on file Industry Job Start Date Occupation Not on file Not on file Not on file Travel End Travel History Travel Start No recent travel history available. documented as of this encounter Functional Status Date of Assessment Functional Status Response 07/05/2019 Does the patient have a hearing impairment: No 07/05/2019 Does the patient have a visual impairment: Yes 07/05/2019 Does the patient have impaired ambulation: No 07/05/2019 Does the patient have an activity of daily living No (ADL) impairment: 07/05/2019 Does the patient have an instrumental activity of No daily living (IADL) impairment: Date of Assessment Cognitive Status Response 07/05/2019 Does the patient have a cognitive impairment: No documented as of this encounter Plan of Treatment Order Schedule Name Type Priority Associated Diag noses Ordered: 07/05/2019 AMB REFERRAL TO Outpatient Routine Pain ORTHOPEDICS Referral documented as of this encounter Visit Diagnoses Diagnosis Pain - Primary Generalized pain documented in this encounter
--- OUTSIDE RECORDS SUMMARY | 2019-07-31 22:43 | XMS REPORT | Encounter Summary ---
Author Author [facility] Organization [facility] Address Unknown Phone Unavailable Care Team Providers Care Home Care Associate Name Role Phone PCP Unavailable Encounter Details Care Team Description Date Type Department 03/31/2019 [facility] [address] [address] Social History Date Tobacco Use Types Packs/Day Years Used Never Assessed Sex Assigned at Date Recorded Not on file Industry Job Start Date Occupation Not on file Not on file Not on file Travel End Travel History Travel Start No recent travel history available. documented as of this encounter Plan of Treatment Not on filedocumented as of this encounter Procedures Comments Procedure Name Priority Date/Time Associated Diag nosis MRI PELVIS EXTERNAL Routine 03/31/2019 IMAGING 3:25 PM CDT documented in this encounter Results * MRI PELVIS EXTERNAL IMAGING (03/31/2019 3:25 PM CDT) Specimen Narrative Performed At This order has been auto finalized and does not contain a result. documented in this encounter Visit Diagnoses Not on filedocumented in this encounter
--- OUTSIDE RECORDS SUMMARY | 2019-07-31 22:43 | XMS REPORT | Encounter Summary ---
Author Author [facility] Organization [facility] Address Unknown Phone Unavailable Care Team Providers Care Leather Goods Ii Assembler Name Role Phone PCP Unavailable Encounter Details Care Team Description Date Type Department 06/01/2019 [facility] [address] [address] Social History Date Tobacco Use Types Packs/Day [...] Procedure Name Priority Date/Time Associated Diag nosis GENERAL RAD PELVIS Routine 06/01/2019 EXTERNAL IMAGING 9:45 AM CDT documented in this encounter Results * GENERAL RAD PELVIS EXTERNAL IMAGING (06/01/2019 9:45 AM CDT) Specimen Narrative Performed At This order has been auto finalized and does not contain a result. documented in this encounter Visit Diagnoses Not on filedocumented in this encounter
--- OUTSIDE RECORDS SUMMARY | 2019-07-31 22:43 | XMS REPORT | Encounter Summary ---
Author Author [facility] Organization [facility] Address Unknown Phone Unavailable Care Team Providers Care Tdp Displays Analyst Name Role Phone Gwyn Dill MD PCP Reason for Referral * Consult, Test & Treat (Routine) Referred By Contact Referred To Contact Status Reason Specialty Diagnoses / [place] [address] [id number] [place] [address] New Request Specialty Services Diagnoses Required Hip impingement syndrome, unspecified laterality Reason for Visit * Reason Comments New Patient BIlateral hip pain Pain Pain Encounter Details Care Team Description Date [place] [address] [address] [place] [address] [phone] Hip impingement syndrome, unspecified la terality (Primary Dx) 07/05/2019 Office Visit [facility] [address] [place] [address] Social History Date Tobacco Use Types Packs/Day [...] history available. documented as of this encounter Last Filed Vital Signs Reading Time Taken Comments Vital Sign 128/82 07/05/2019 12:36 PM STONE DRESSER Blood Pressure 74 07/05/2019 12:36 PM STONE DRESSER Pulse 36.9 C (98.5 F) 07/05/2019 12:36 PM STONE DRESSER Temperature 16 07/05/2019 12:36 PM STONE DRESSER Respiratory Rate 100% 07/05/2019 12:36 PM STONE DRESSER Oxygen Saturation - - Inhaled Oxygen Concentration 85.2 kg (187 lb 12.8 oz) 07/05/2019 12:36 PM STONE DRESSER Weight 180.3 cm (5' 11") 07/05/2019 12:36 PM STONE DRESSER Height 26.19 07/05/2019 12:36 PM STONE DRESSER Body Mass Index documented in this encounter Functional Status Date of Assessment [...] impairment: No documented as of this encounter Progress Notes * Shiv Monroe MD - 07/05/2019 12:40 PM STONE DRESSER Orthopaedic Surgery History and Physical - Shiv Monroe MD Referring Provider: Gwyn Dill Date of Visit: 07/05/19 DIAGNOSIS: Bilateral hip pain PLAN: - Conservative management with over the counter NSAIDs, activity modification, P T - if not better with PT in 1 month, will refer him over to Dr. Saunders for evalua tion of his СЕРГЕЙ ASSESSMENT: The patient has pain in bilateral hips likely related to impingement. At this p oint I would like to attempt conservative management with PT. I would then have him see Dr. Joseph Saunders if PT does not resolve his symptoms for further discuss ion of his СЕРГЕЙ. Prescription provided today for this. He is in agreement with is plan CHIEF COMPLAINT: left hip pain HISTORY OF PRESENT ILLNESS: Sohail Chaves is a 33 y.o. male who presents with b ilateral hip pain. The pain has been present for 2.5 years. It is located in th e groin and described as sharp. It is worst with hip abduction and better with rest. Failed conservative treatment measures include NSAIDS. It does not bothe r him to run or do daily activities. He does feel some periodic mechanical sympt oms to L hip more than the right PHYSICAL EXAM: Vitals: 07/05/19 1236 BP: 128/82 Pulse: 74 Resp: 16 Temp: 36.9 C (98.5 F) SpO2: 100% Musculoskeletal: Exam of bilateral lower exts - Hip ROM symmetric 120* hip flexion, 10* internal, 80* external rotation. Some pain with internal rotation - Strength: Normal strength in hip flexion, knee extension, ankle dorsiflexion - Palpation: No tenderness to palpation over the greater trochanter - Dorsalis pedis 2+ pulse, foot warm and well perfused. Constitutional: In no distress Eyes: No scleral icterus, conjugate gaze intact Respiratory: Non labored respirations, no audible wheezing, no coughing Cardiovascular: Normal rate per peripheral pulse, normal rhythm per peripheral p ulse Lymphatic: No peripheral edema. No asymmetric edema. Skin: No rashes. No ulcers. Neurological: Normal sensation to light touch. No weakness on strength testing. Psychiatric: Mood is appropriate. Judgement and insight seems appropriate. REVIEW OF SYSTEMS: 12 systems (General, HENT, Eyes, Respiratory, CV, GI, , MS, Skin, Neurological , Hematologic, and Psychiatric) were reviewed and documented per the patient int alonso form completed during today's visit. The review was negative for reported sy mptoms except those detailed in HPI as well as the following: none PAST MEDICAL HISTORY: Medical History: Diagnosis Date Acute tonsillitis PAST SURGICAL HISTORY: History reviewed. No pertinent surgical history. FAMILY HISTORY: Family History Problem Relation Age of Onset Diabetes Mother Heart Attack Mother SOCIAL HISTORY: reports that he has never smoked. He has never used smokeless t obacco. He reports that he does not drink alcohol or use drugs. MEDICATIONS: No current outpatient medications on file. ALLERGIES: No Known Allergies IMAGING: Imaging reviewed by physician XR pelvis and left hip reveals СЕРГЕЙ of bilateral hips E DRESSER documented in this encounter Plan of Treatment Order Schedule Name Type Priority Associated Diag noses Ordered: 07/05/2019 AMB REFERRAL TO PHYSICAL Outpatient Routine Hip i mpingement syndrome, THERAPY Referral unspecified lateral ity documented as of this encounter Visit Diagnoses Diagnosis Hip impingement syndrome, unspecified l aterality - Primary documented in this encounter
--- OUTSIDE RECORDS SUMMARY | 2019-07-31 22:43 | XMS REPORT | Continuity of Care Document ---
Author Organization Unknown Address Unknown Phone Unavailable Allergies Active Description Code Type Severity Reaction Onset Reported/Identified Relationship to Patient Clinical Status Yes NO KNOWN DRUG ALLERGIES UNKNOWN NO KNOWN DRUG ALLERG Yes NO KNOWN DRUG ALLERGIES UNKNOWN UNKNOWN Yes NKANo Known Allergies NKA Miscellaneous Allergy Unknown N/A 03/22/2006 Medications Medication Packaging Start Date St op Date Route Dosage Sig LACTATED RINGERS 1000CC IV BAG INJ ml 11/21/2018 11/28/2018 CONTINUOUSEVERY 0 Hour Problems Date Dx Coded Attending Type Code Diagnosis Diagnosed By 06/07/2014 ADAM RUBIO APRN V7 4.5 STD SCREEN 11/25/2016 BECKY YEUNG, FACUNDO R Ot D23. 11 OT BENIGN NEOPLASM SKIN/ RIGHT EYELID, 11/25/2016 FACUNDO PENA MD R Ot R00. 2 PALPITATIONS 12/17/2016 BECKY YEUNG, FACUNDO R Ot R07. 89 OTHER CHEST PAIN 03/07/2018 Ot G40.909 EP ILEPSY, UNSP, NOT INTRACTABLE, WITHOUT 03/07/2018 Ot R07.89 OT ER CHEST PAIN 03/07/2018 Ot Z79.52 SARAVANAN G TERM (CURRENT) USE OF SYSTEMIC STER 06/01/2018 NELLY WRAY MD Ot M25.551 PAIN IN RIGHT HIP 06/01/2018 NELLY WRAY MD Ot M25.552 PAIN IN LEFT HIP 11/21/2018 Chris Fitch 45 5.0 INTERNAL HEMORRHOIDS WITHOUT MENTION OF COMPLICATION 11/21/2018 Chris Fitch 57 8.1 BLOOD IN STOOL 11/21/2018 Chris Fitch 787.99 OTHER SYMPTOMS INVOLVING DIGESTIVE SYSTEM 11/21/2018 Chris Fitch K6 4.0 FIRST DEGREE HEMORRHOIDS 11/21/2018 Chris Fitch K9 2.1 MELENA 11/21/2018 Fitch, Chris John W R1 9.4 CHANGE IN BOWEL HABIT 03/30/2019 KAMALA YEUNG, NELLY Weiner Ot M25.551 PAIN IN RIGHT HIP 03/30/2019 KAMALA YEUNG, NELLY Weiner Ot M25.552 PAIN IN LEFT HIP 04/05/2019 BECKY YEUNG, FACUNDO R Ot M25.551 PAIN IN RIGHT HIP 04/05/2019 BECKY YENUG, FACUNDO R Ot M25.552 PAIN IN LEFT HIP 04/18/2019 BECKY YEUNG, FACUNDO R Ot M25.551 PAIN IN RIGHT HIP 04/18/2019 BECKY YEUNG, FACUNDO R Ot M25.552 PAIN IN LEFT HIP 05/01/2019 BECKY YEUNG, FACUNDO R Ot M25.551 PAIN IN RIGHT HIP 05/01/2019 BECKY YEUNG, FACUNDO R Ot M25.552 PAIN IN LEFT HIP 05/01/2019 BECKY YEUNG, FACUNDO R Ot M25.551 PAIN IN RIGHT HIP 05/01/2019 BECKY YEUNG, FACUNDO R Ot M25.552 PAIN IN LEFT HIP 07/06/2019 SANIA RENE MD Ot G40.909 EPILEPSY, UNSP, NOT INTRACTABLE, WITHOUT 07/06/2019 SANIA RENE MD Ot N13.2 HYDRONEPHROSIS WITH RENAL AND URETERAL C 07/06/2019 SANIA RENE MD Ot R10.31 RIGHT LOWER QUADRANT PAIN 07/06/2019 SANIA RENE MD Ot Z79.52 BASE BRANDER (CURRENT) USE OF SYSTEMIC STER 07/10/2019 RAMAN PURCELL MD Ot Z01.8 18 ENCOUNTER FOR OTHER PREPROCEDURAL EXAMIN 07/11/2019 RAMAN PURCELL MD, Ot N20.1 CALCULUS OF URETER 07/14/2019 RAMAN PURCELL MD, Ot N20.1 CALCULUS OF URETER 07/14/2019 RAMAN PURCELL MD Ot R31.9 HEMATURIA, UNSPECIFIED 07/14/2019 RAMAN PURCELL MD, Ot Z79.8 91 GROUP HOME (CURRENT) USE OF OPIATE ANALGE 07/14/2019 RAMAN PURCELL MD, Ot Z79.8 99 OTHER GROUP HOME (CURRENT) DRUG THERAPY 07/14/2019 RAMAN PURCELL MD, Ot Z90.8 9 ACQUIRED ABSENCE OF OTHER ORGANS 07/27/2019 RAMAN PURCELL MD Ot N20.1 CALCULUS OF URETER Procedures Code Description [place] [address] ROUT INE VENIPUNCTURE 06/07/2014 83158 SYPH ILLIS[facility] 06/07/2014 09632 HIV ([facility]) 06/07/2014 36508 GC/C HLAM URINE ([facility]) 06/07/2014 Results Test Result Range Complete blood count (CBC) with automate d white blood cell (WBC) differential - 03/07/18 04:19 Blood leukocytes automated count (number/volume) 6.1 10*3/uL 4.3-11.0 Blood erythrocytes automated count (number/volume) 4.72 10*6/uL 4.35-5.85 Venous blood hemoglobin measurement (mass/volume) 14.8 g/dL 13.3-17.7 Blood hematocrit (volume fraction) 42 % 40-54 Automated erythrocyte mean corpuscular volume 88 [ foz_us] 80-99 Automated erythrocyte mean corpuscular h emoglobin (mass per erythrocyte) 31 pg 25-34 Automated erythrocyte mean corpuscular h emoglobin concentration measurement (mass/volume) 36 g/dL 32-36 Automated erythrocyte distribution width ratio 13. 1 % 10.0- 14.5 Automated blood platelet count (count/volume) 153 10*3/uL 130-400 Automated blood platelet mean volume measurement 10.1 [foz_us] 7.4-10.4 Automated blood neutrophils/100 leukocytes 42 % 42-75 Automated blood lymphocytes/100 leukocytes 43 % 12-44 Blood monocytes/100 leukocytes 9 % 0-12 Automated blood eosinophils/100 leukocytes 5 % 0-10 Automated blood basophils/100 leukocytes 0 % 0-10 Blood neutrophils automated count (number/volume) 2.6 10*3 1.8-7.8 Blood lymphocytes automated count (number/volume) 2.6 10*3 1.0-4.0 Blood monocytes automated count (number/volume) 0. 5 10*3 0.0-1.0 Automated eosinophil count 0.3 10*3/uL 0 .0-0.3 Automated blood basophil count (count/volume) 0.0 10*3/uL 0.0-0.1 PT panel in platelet poor plasma by coag ulation assay - 03/07/18 04:19 Prothrombin time (PT) in platelet poor plasma by coagu lation assay 13.4 s 12.2-14.7 INR in platelet poor plasma or blood by coagulation as say 1.0 0.8-1.4 Activated partial thromboplastin time (a PTT) in platelet poor plasma bycoagulation assay - 03/07/18 04:19 Activated partial thromboplastin time (a PTT) in platelet poor plasma bycoagulation assay 30 s 24-35 Comprehensive metabolic panel - 03/07/18 04:19 Serum or plasma sodium measurement (moles/volume) 140 mmol/L 135-145 Serum or plasma potassium measurement (moles/volume) 4.3 mmol/L 3.6-5.0 Serum or plasma chloride measurement (moles/volume) 106 mmol/L 98-107 Carbon dioxide 24 mmol/L 21-32 Serum or plasma anion gap determination (moles/volume) 10 mmol/L 5-14 Serum or plasma urea nitrogen measurement (mass/volume ) 19 mg/dL 7-18 Serum or plasma creatinine measurement (mass/volume) 1.11 mg/dL 0.60-1.30 Serum or plasma urea nitrogen/creatinine mass ratio 17 NRG Serum or plasma creatinine measurement w ith calculation of estimated glomerular filtration rate > NRG Serum or plasma glucose measurement (mass/volume) 88 mg/dL 70-105 Serum or plasma calcium measurement (mass/volume) 9.7 mg/dL 8.5-10.1 Serum or plasma total bilirubin measurement (mass/volu me) 0.5 mg/dL 0.1-1.0 Serum or plasma alkaline phosphatase jermaine surement (enzymatic activity/volume) 57 U/L 40-136 Serum or plasma aspartate aminotransfera se measurement (enzymatic activity/volume) 20 U/L 5-34 Serum or plasma alanine aminotransferase measurement (enzymatic activity/volume) 18 U/L 0-55 Serum or plasma protein measurement (mass/volume) 7.1 g/dL 6.4-8.2 Serum or plasma albumin measurement (mass/volume) 4.7 g/dL 3.2-4.5 Magnesium - 03/07/18 04:19 Magnesium 2.3 mg/dL 1.8-2.4 Serum or plasma creatine kinase measurem ent (enzymatic activity/volume) - 03/07/18 04:19 Serum or plasma creatine kinase measurem ent (enzymatic activity/volume) 81 U/L 30-200 Serum or plasma creatine kinase MB measu rement (enzymatic activity/volume) - 03/07/18 04:19 Serum or plasma creatine kinase MB measu rement (enzymatic activity/volume) 0.9 ng/mL <6.6 Serum or plasma troponin i.cardiac measu rement (mass/volume) - 03/07/18 04:19 Serum or plasma troponin i.cardiac measurement (mass/v olume) < ng/mL <0.30 Serum or plasma amylase measurement (enz ymatic activity/volume) - 03/07/18 04:19 Serum or plasma amylase measurement (enzymatic activit y/volume) 57 U/L 25-125 Serum or plasma lithium measurement (mol es/volume) - 03/07/18 04:19 BNP level < pg/mL <100.0 Lipase - 03/07/18 04:19 Lipase 27 U/L 8-78 EKG - 11/16/18 13:47 EKG Complete BMP - 11/16/18 13:47 Anion Gap 13 6-14 BUN 18 mg/dL 5-25 Calcium 9.9 mg/dL 8.3-10.4 Chloride 107 mmol/L 95-114 CO2 26 mEq/L 22-33 Creat 0.94 mg/dL 0.50-1.50 eGFR 93 mL/min/1.73m2 >59 Glucose 85 mg/dL 70-110 Osmo 294 280-295 Potassium 4.4 mmol/L 3.5-5.3 Sodium 142 mmol/L 134-148 Complete urinalysis with reflex to cultu re - 07/06/19 04:55 Urine color determination YELLOW NRG Urine clarity determination CLEAR NR G Urine pH measurement by test strip 6.0 5-9 Specific gravity of urine by test strip 1.020 1.016-1.022 Urine protein assay by test strip, semi-quantitative NEGATIVE NEGATIVE Urine glucose detection by automated test strip NE GATIVE NEGATIVE Erythrocytes detection in urine sediment by light micr oscopy 3+ NEGATIVE Urine ketones detection by automated test strip NE GATIVE NEGATIVE Urine nitrite detection by test strip NEGATIVE NEGATIVE Urine total bilirubin detection by test strip NEGA TIVE NEGATIVE Urine urobilinogen measurement by automated test strip (mass/volume) 0.2 mg/dL < = 1.0 Urine leukocyte esterase detection by dipstick NEG ATIVE NEGATIVE Automated urine sediment erythrocyte cou nt by microscopy (number/high power field) [HPF] NRG Automated urine sediment leukocyte count by microscopy (number/high power field) RARE NRG Bacteria detection in urine sediment by light microsco py TRACE NRG Squamous epithelial cells detection in u rine sediment by light microscopy RARE NRG Crystals detection in urine sediment by light microsco py NONE NRG Casts detection in urine sediment by light microscopy NONE NRG Mucus detection in urine sediment by light microscopy MODERATE NRG Complete urinalysis with reflex to culture NO NRG Urine drug screening test - 07/06/19 04: 55 Urine phencyclidine detection by screening method NEGATIVE NEGATIVE Urine benzodiazepines detection by screening method NEGATIVE NEGATIVE Urine cocaine detection NEGATIVE NEGATI VE Urine amphetamines detection by screening method N EGATIVE NEGATIVE Urine methamphetamine detection by screening method NEGATIVE NEGATIVE Urine cannabinoids detection by screening method N EGATIVE NEGATIVE Urine opiates detection by screening method NEGATI VE NEGATIVE Urine barbiturates detection NEGATIVE N EGATIVE Screening urine tricyclic antidepressants detection NEGATIVE NEGATIVE Urine methadone detection by screening method NEGA TIVE NEGATIVE Urine oxycodone detection NEGATIVE NEGA TIVE Urine propoxyphene detection NEGATIVE N EGATIVE Complete blood count (CBC) with automate d white blood cell (WBC) differential - 07/06/19 04:58 Blood leukocytes automated count (number/volume) 11.7 10*3/uL 4.3-11.0 Blood erythrocytes automated count (number/volume) 5.20 10*6/uL 4.35-5.85 Venous blood hemoglobin measurement (mass/volume) 16.0 g/dL 13.3-17.7 Blood hematocrit (volume fraction) 45 % 40-54 Automated erythrocyte mean corpuscular volume 86 [ foz_us] 80-99 Automated erythrocyte mean corpuscular h emoglobin (mass per erythrocyte) 31 pg 25-34 Automated erythrocyte mean corpuscular h emoglobin concentration measurement (mass/volume) 36 g/dL 32-36 Automated erythrocyte distribution width ratio 12. 7 % 10.0- 14.5 Automated blood platelet count (count/volume) 219 10*3/uL 130-400 Automated blood platelet mean volume measurement 9.8 [foz_us] 7.4-10.4 Automated blood neutrophils/100 leukocytes 44 % 42-75 Automated blood lymphocytes/100 leukocytes 43 % 12-44 Blood monocytes/100 leukocytes 11 % 0-12 Automated blood eosinophils/100 leukocytes 3 % 0-10 Automated blood basophils/100 leukocytes 0 % 0-10 Blood neutrophils automated count (number/volume) 5.1 10*3 1.8-7.8 Blood lymphocytes automated count (number/volume) 5.0 10*3 1.0-4.0 Blood monocytes automated count (number/volume) 1. 3 10*3 0.0-1.0 Automated eosinophil count 0.3 10*3/uL 0 .0-0.3 Automated blood basophil count (count/volume) 0.1 10*3/uL 0.0-0.1 Comprehensive metabolic panel - 07/06/19 04:58 Serum or plasma sodium measurement (moles/volume) 140 mmol/L 135-145 Serum or plasma potassium measurement (moles/volume) 3.6 mmol/L 3.6-5.0 Serum or plasma chloride measurement (moles/volume) 104 mmol/L 98-107 Carbon dioxide 21 mmol/L 21-32 Serum or plasma anion gap determination (moles/volume) 15 mmol/L 5-14 Serum or plasma urea nitrogen measurement (mass/volume ) 13 mg/dL 7-18 Serum or plasma creatinine measurement (mass/volume) 0.96 mg/dL 0.60-1.30 Serum or plasma urea nitrogen/creatinine mass ratio 14 NRG Serum or plasma creatinine measurement w ith calculation of estimated glomerular filtration rate > NRG Serum or plasma glucose measurement (mass/volume) 126 mg/dL 70-105 Serum or plasma calcium measurement (mass/volume) 9.4 mg/dL 8.5-10.1 Serum or plasma total bilirubin measurement (mass/volu me) 0.8 mg/dL 0.1-1.0 Serum or plasma alkaline phosphatase jermaine surement (enzymatic activity/volume) 62 U/L 40-136 Serum or plasma aspartate aminotransfera se measurement (enzymatic activity/volume) 19 U/L 5-34 Serum or plasma alanine aminotransferase measurement (enzymatic activity/volume) 25 U/L 0-55 Serum or plasma protein measurement (mass/volume) 7.2 g/dL 6.4-8.2 Serum or plasma albumin measurement (mass/volume) 4.7 g/dL 3.2-4.5 Serum or plasma C reactive protein measu rement (mass/volume) - 07/06/19 04:58 Serum or plasma C reactive protein measurement (mass/v olume) 0.03 mg/dL 0.00-0.50 Methicillin resistant Staphylococcus aur eus (MRSA) screening culture - 07/12/19 06:50 Methicillin resistant Staphylococcus aureus (MRSA) scr eening culture NEG NRG Measurement of weight of kidney stone - 07/12/19 11:06 Measurement of weight of kidney stone 17 % NRG Kidney stone composition determination See Note NRG Count of number of calculi 1 NRG Size of stone 5 to 9 NRG Encounters ACCT No. Visit Date/Time Discharge Status Pt. Type Provider Facility Loc./Unit Complaint [id number] 06/07/2014 15:16:00 06/07/2014 23:59: 59 CLS Outpatient ADAM RUBIO APRN [id number] 07/12/2019 06:22:00 11:12:00 DIS Outpatient RAMAN PURCELL MD [facility] SDC RIGHT URETERAL STONE [id number] 07/10/2019 05:29:00 09:29:00 DIS Outpatient RAMAN PURCELL MD [facility] PREOP RIGHT URETEROSCOPY POSS IBLE STONE BASKET/JJ STENT [id number] 07/07/2019 08:23:00 23:59:59 CLS Outpatient RAMAN PURCELL MD [facility] RAD RT URTERAL STONE [id number] 07/06/2019 04:39:00 08:50:00 DIS Emergency SANIA RENE MD [facility] ER RIGHT SIDE PAIN [id number] 03/31/2019 15:08:00 23:59:59 CLS Outpatient BECKY YEUNG, FACUNDO Sanon [facility] RAD PAIN OF BOTH HIP JOINTS [id number] 05/30/2018 08:24:00 23:59:59 CLS Outpatient KAMALA YEUNG, NELLY Weiner [facility] RAD M25.551,M25.552 [id number] 12/02/2016 12:39:00 23:59:59 CLS Outpatient FACUNDO PENA MD [facility] RAD R07.89 [id number] 11/10/2016 08:55:00 017 23:59:59 CLS Outpatient FACUNDO PENA MD [facility] RAD PAPILLOMA OF EYELID [id number] 03/22/2014 11:39:00 014 23:59:59 CLS Outpatient [id number] 03/07/2018 04:33:00 Document Registration [id number] 11/21/2018 06:42:00 11/21/2018 09:25: 00 DIS Outpatient Chris Fitch [id number] 11/16/2018 13:32:00 11/16/2018 23:59: 00 DIS Outpatient Chris Fitch [id number] 11/16/2018 14:09:28 Document Registration [id number] 11/16/2018 13:32:00 Document Registration
--- OUTSIDE RECORDS SUMMARY | 2019-07-31 22:43 | XMS REPORT | Clinical Summary ---
Author Author [facility] Organization [facility] Address Unknown Phone Unavailable Care Team Providers Care Teaching Aide Name Role Phone Gwyn Dill MD PCP Source Comments Some departments are not documenting in the electronic medical record. If you d o not see the information that you expected, contact Release of Information in formerly [facility] [employer] Information Management department at [phone] for further assistan ce in locating additional records.[facility] Allergies No Known Allergies Medications No known medications Active Problems Not on file Encounters Care Team Description Date Type Specialty Shiv Monroe MD Hip impingement syndrome, unspecified la terality (Primary Dx) 07/05/2019 Office Visit Sports Medicine Shiv Monroe MD Pain (Primary Dx) 07/05/2019 Orders Only Sports Medicine 06/01/2019 Hospital Radiology Encounter from Last 3 Months Family History Medical History Relation Name Comments Diabetes Mother Heart Attack Mother Relation Name Status Comments Mother Social History Date Tobacco Use Types Packs/Day [...] Travel Start No recent travel history available. Last Filed Vital Signs Reading Time Taken Comments Vital Sign 128/82 07/05/2019 12:36 PM CHIN STRAP SEWER Blood Pressure 74 07/05/2019 12:36 PM CHIN STRAP SEWER Pulse 36.9 C (98.5 F) 07/05/2019 12:36 PM CHIN STRAP SEWER Temperature 16 07/05/2019 12:36 PM CHIN STRAP SEWER Respiratory Rate 100% 07/05/2019 12:36 PM CHIN STRAP SEWER Oxygen Saturation - - Inhaled Oxygen Concentration 85.2 kg (187 lb 12.8 oz) 07/05/2019 12:36 PM CHIN STRAP SEWER Weight 180.3 cm (5' 11") 07/05/2019 12:36 PM CHIN STRAP SEWER Height 26.19 07/05/2019 12:36 PM CHIN STRAP SEWER Body Mass Index Plan of Treatment Health Maintenance Due Date Last Done Comments DTAP/TDAP VACCINES (1 - 1997 Tdap) HIV SCREENING 2001 PHYSICAL (COMPREHENSIVE) 2004 EXAM INFLUENZA VACCINE 03/02/2019 Procedures Comments Procedure Name Priority Date/Time Associated Diag nosis GENERAL RAD PELVIS Routine 06/01/2019 EXTERNAL IMAGING 9:45 AM CDT from Last 3 Months Results * GENERAL RAD PELVIS EXTERNAL IMAGING (06/01/2019 9:45 AM CDT) Specimen Narrative Performed At This order has been auto finalized and does not contain a result. from Last 3 Months Insurance Type Payer Benefit Subscriber ID Effective Phone Address Plan / Dates Group [facility]P [employer] Advance Directives Patient Appliance Worker Explanation Type Date Recorded Advance Directive/DPOA
== END 2019-07-06 08:50 | disposition home or self-care (01) ==
LOC: EDUNIT# 04:38 → ER 04:39
DX: N13.2 Hydronephrosis with renal and ureteral calculous obstruction (principal); G40.909 Epilepsy, unspecified, not intractable, without status epilepticus; Z79.52 Long term (current) use of systemic steroids
CPT/HCPCS: 36415; 74176; 80053; 80306; 81000; 85025; 86141; 96361; 96374; 96375; 96376

== ENCOUNTER → 2019-07-07 | Outpatient (CLI) | payer BC ==
[~2019-07-07] MED LIST changes: +CEPH500T PO; +HYDR-34 PO; +ONDA4TAB11 PO; +TMSL.4C PO
--- NOTE | 2019-07-07 09:03 | Diagnostic Imaging Report ---
Abdomen at 8:37. Indication: Right ureteral stone. The CT abdomen/pelvis exam of 07/06/2019 noted 3 mm obstructive calculus in the distal right ureter. The calculus still seems to be present on this study. The overall appearance of the abdomen is otherwise unchanged. There is some gas in both the large and small bowel in a nonspecific fashion. There is no sign of a bowel obstruction. There is a fair amount of fecal material in the ascending and transverse colon. Impression: The obstructive calculus involving the distal right ureter seen on the prior study is again evident and does not appear to have changed in position. Dictated by: Dictated on workstation # [id number]
== END ==
LOC: RAD 08:23
PROVIDERS: ATTEND Urology
DX: N20.1 Calculus of ureter (principal)
CPT/HCPCS: 74018

== ENCOUNTER 2019-07-10 05:29 | Outpatient (CLI) | payer BC ==
[~2019-07-10] VITALS: Ht 180 cm; Wt 81.8 kg
[~2019-07-10 05:29] MED LIST changes: -TMSL.4C PO
[2019-07-10] MEDS ORDERED: TMSL.4C PO (09:18)
== END 2019-07-10 09:29 | disposition home or self-care (01) ==
LOC: PREOP 05:29
PROVIDERS: ATTEND Urology
DX: Z01.818 Encounter for other preprocedural examination (principal)

== ENCOUNTER 2019-07-12 06:22 | Day surgery (SDC) | payer BC ==
[~2019-07-12] VITALS: Ht 180 cm; Wt 81.8 kg
[2019-07-12] VITALS (10 sets, daily range): BP systolic 102–137; BP diastolic 55–93
[~2019-07-12 06:22] MED LIST changes: +TAMS0.4C98 PO
[2019-07-12] MEDS ORDERED: WATER (STERILE) FOR INJECTION 10 ML ONE (07:07)
[2019-07-12] MEDS ORDERED: cefTRIAXone 1,000 MG IV (ROCEPHIN) VIAL ONE (07:07)
[2019-07-12] MEDS ORDERED: LIDOCAINE PF 2% 5 ML (XYLOCAINE) VIAL ONE (07:12)
[2019-07-12] MEDS ORDERED: ROCURONIUM 10 MG/ML 5 ML SYRINGE IV ONE (07:12)
[2019-07-12] MEDS ORDERED: proPOfol 200 MG/20 ML (DIPRIVAN) VIAL IV ONE (07:12)
[2019-07-12] MEDS ORDERED: MIDAZOLAM 2 MG/2 ML (VERSED) VIAL ONE (07:12)
[2019-07-12] MEDS ORDERED: fentaNYL INJECTION 100 MCG/2 ML AMP ONE (07:12)
[2019-07-12] MEDS ORDERED: GLYCOPYRROLATE 0.2 MG/ML (ROBINUL) 2 ML VIAL ONE (07:12)
[2019-07-12] MEDS ORDERED: ONDANSETRON 4 MG/2 ML (SDV) Z0FRAN ONE (07:12)
[2019-07-12] MEDS ORDERED: NEOSTIGMINE 3 MG/3 ML VIAL ONE (07:12)
[2019-07-12] MEDS ORDERED: DEXAMETHASONE 10 MG/ML (DECADRON) 1 ML VIAL ONE (07:12)
[2019-07-12] MEDS ORDERED: SEVOFLURANE (ULTANE) 15 ML INHAL SOLN ONE (07:12)
[2019-07-12] MEDS ORDERED: LACTATED RINGERS 1,000 ML IV PRN (07:20)
[2019-07-12] MEDS ORDERED: cefTRIAXone FOR IV USE 1,000 MG in WATER (STERILE) FOR INJECTION 10 ML IV ONE (07:30)
--- NOTE | 2019-07-12 08:35 | Diagnostic Imaging Report ---
EXAMINATION: Abdominal radiographs, single supine view. DATE: July 12, 2019. CLINICAL INDICATION: 33-year-old male, status post ureteroscopy. COMPARISON: July 07, 2019. COMMENTS: There are no abnormally distended gas-filled segments of bowel. There is a left-sided pelvic calcification, likely relating to a phlebolith. The punctate right pelvic calcification seen on the prior exam is also present. It may relate to the previously noted right ureterovesical junction stone seen on prior CT imaging of July 06, 2019. IMPRESSION: 1. The punctate calcification in the right side of the pelvis potentially correlates with the prior stone at the level of the ureterovesical junction on July 06, 2019 although this is difficult to definitively state. 2. Additional radiographic evaluation of the abdomen is unremarkable. Dictated by: Dictated on workstation # [id number]
--- NOTE | 2019-07-12 09:05 | Progress Note-Post Operative ---
Post-Operative Progess Note Surgeon (s)/Financial Analysis Manager (s) Surgeon RAMAN PURCELL MD Financial Analysis Manager: NONE Pre-Operative Diagnosis right ureteral stone Post-Operative Diagnosis SAME Procedure & Operative Findings Date of Procedure 07/12/19 Procedure Performed/Findings RT URETEROSCOPY WITH STONE BASKET Anesthesia Type GENERAL Estimated Blood Loss Estimated blood loss (mL): NONE Specimens/Packing Specimens Removed STONE FOR ANALYSIS Packing: NONE RAMAN PURCELL MD Jul 12, 2019 09:05 POS
--- NOTE | 2019-07-12 09:07 | Discharge Inst-Urology ---
Discharge Inst-Urology Reconcile Patient Problems Problems Reviewed?: Yes Patient Instructions/Follow Up Plan/Assessment/Instructions Please make appointment to been seen in office in 3 weeks. Increase oral fluids for 48 hours and then as needed. Diet and Activity as tolerated. If questions or concerns contact your physician Or seek help at emergency department. RAMAN PURCELL MD Jul 12, 2019 09:07 POS
[2019-07-12] MEDS ORDERED: MEPERIDINE (DEMEROL) INJ 50 MG/ML IVP ONE (09:15)
[2019-07-12] MEDS ORDERED: morphine INJ 10 MG/ML 1ML (SYR OR VIAL) IVP ONE (09:15)
[2019-07-12] MEDS ORDERED: ONDANSETRON 4 MG/2 ML (SDV) Z0FRAN IVP PRN (09:15)
[2019-07-12] MEDS ORDERED: HYDROcodone/APAP 5 MG/325 MG (LORTAB) TAB ONE (10:14)
[2019-07-12] MEDS ORDERED: HYDROcodone/APAP 5 MG/325 MG (LORTAB) TAB PO ONE (10:30)
--- NOTE | 2019-07-12 19:18 | OPERATIVE REPORT ---
DATE OF SERVICE: 07/12/2019 PREOPERATIVE DIAGNOSIS: Right distal ureteral stone. POSTOPERATIVE DIAGNOSIS: Right distal ureteral stone. OPERATION PERFORMED: Right ureteroscopy with stone basket. SURGEON: Paul Purcell MD ANESTHESIA: General. COMPLICATIONS: None. DESCRIPTION OF PROCEDURE: Under satisfactory general anesthesia, the patient in lithotomy position, genitalia were prepped and draped in the usual sterile fashion. Cystoscope was introduced under vision. The anterior urethra was normal. The prostate was nonobstructing. There was a median bar. The bladder was entered was normal except for a sluggish efflux on the right side. Using the foroblique lens, I dilated the right ureteral orifice intramural portion to accommodate a 6.9 Vincentian semi-rigid ureteroscope, visualized the stone. It was impacted in the wall of the ureter. I was able to disimpact the stone, engaged it with a Leos basket 3-Vincentian in size completely. I went back with the cystoscope to empty the bladder. The patient tolerated the procedure and anesthesia well and was sent to recovery room in stable condition. Job ID: [id number] DocumentID: [id number] Dictated Date: 07/12/2019 09:09:28 International Marketing Executive Date: 07/12/2019 19:17:36 Dictated By: PAUL PURCELL MD
== END 2019-07-12 11:12 | disposition home or self-care (01) ==
LOC: SDC 06:22
PROVIDERS: ATTEND Urology
DX: N20.1 Calculus of ureter (principal); R31.9 Hematuria, unspecified; Z90.89 Acquired absence of other organs; Z79.891 Long term (current) use of opiate analgesic; Z79.899 Other long term (current) drug therapy
CPT/HCPCS: 74018; 87081; 88300

== ENCOUNTER 2019-08-09 12:04 | Outpatient (RCR) | payer BC ==
[~2019-08-09 12:04] MED LIST changes: -TAMS0.4C98 PO; +TMSL.4C PO
== END 2019-11-05 | disposition home or self-care (01) ==
LOC: LAB 12:04
PROVIDERS: ATTEND Urology
DX: N20.1 Calculus of ureter (principal)
CPT/HCPCS: 36415; 82140; 82340; 82507; 82570; 83735; 83945; 83986; 84105; 84133; 84300; 84392; 84560

== ENCOUNTER → 2020-02-20 | Outpatient (CLI) | payer BC ==
--- NOTE | 2020-02-20 14:30 | Diagnostic Imaging Report ---
INDICATION: Kidney stones. TIME OF EXAM: 2:23 PM. COMPARISON: 07/12/2019. FINDINGS: The bowel gas pattern is nonobstructed. No definite radiopaque urinary tract calculi are seen. Calcifications in the pelvis appear stable and are likely phleboliths. IMPRESSION: Stable KUB. Dictated by: Dictated on workstation # [id number]
== END ==
LOC: RAD 13:59
PROVIDERS: ATTEND Urology
DX: N20.0 Calculus of kidney (principal)
CPT/HCPCS: 74018

== ENCOUNTER → 2020-05-27 | Outpatient (CLI) | payer BC ==
--- NOTE | 2020-05-27 12:05 | Diagnostic Imaging Report ---
INDICATION: Rib pain and sternum pain. TIME OF EXAM: 11:13 AM. FINDINGS: Two views of the sternum were obtained. The alignment is normal. No definite fracture is identified. The retrosternal airspace is unremarkable. IMPRESSION: No acute bony abnormality is detected. Dictated by: Dictated on workstation # [id number]
--- NOTE | 2020-05-27 12:06 | Diagnostic Imaging Report ---
INDICATION: Bilateral rib pain. TIME OF EXAM: 10:57 AM. FINDINGS: Multiple views of the bilateral ribs were obtained. No displaced rib fracture is identified. No parenchymal contusion, effusion, or pneumothorax is detected. IMPRESSION: No displaced rib fracture is detected. Dictated by: Dictated on workstation # [id number]
== END ==
LOC: RAD 10:48
PROVIDERS: ATTEND Nurse Practitioner Family
DX: R07.81 Pleurodynia (principal); R07.2 Precordial pain
CPT/HCPCS: 71110; 71120

== ENCOUNTER → 2021-01-20 | Outpatient (CLI) | payer BC ==
--- NOTE | 2021-01-20 15:24 | Diagnostic Imaging Report ---
INDICATION: History of calculi. COMPARISON: 02/20/2020 FINDINGS: Two supine radiographic views of the abdomen were obtained and demonstrate nondistended loops of small bowel. There is no large collection of free peritoneal air. Mild air and stool are seen scattered throughout the colon. No unexpected extraosseous calcifications or radiopaque foreign bodies are seen. Bony structures show no gross acute abnormalities. IMPRESSION: 1. Nonobstructed small bowel gas pattern. Dictated by: Dictated on workstation # [id number]
== END ==
LOC: RAD 14:48
PROVIDERS: ATTEND Urology
DX: Z87.442 Personal history of urinary calculi (principal)
CPT/HCPCS: 74018

== ENCOUNTER → 2021-11-25 | Outpatient (CLI) | payer BC ==
--- NOTE | 2021-11-25 15:27 | Diagnostic Imaging Report ---
INDICATION: Abdominal pain. TIME OF EXAM: 2:46 PM. FINDINGS: A single view of the abdomen shows the bowel gas pattern to be unremarkable. No obstruction is seen. No pathologic calcifications are identified. The left pelvic calcification is unchanged in position from a study in December 2020 and may represent a phlebolith. IMPRESSION: No acute feature is detected. Dictated by: Dictated on workstation # [id number]
--- NOTE | 2021-11-25 15:30 | Diagnostic Imaging Report ---
INDICATION: Neck pain. TIME OF EXAM: 2:48 PM. FINDINGS: Alignment of the cervical spine is normal. Vertebral body heights and disc spaces are well-maintained. Prevertebral tissues are normal. Odontoid is intact. Flexion and extension views show no abnormal motion. IMPRESSION: No acute bony abnormality is detected. Dictated by: Dictated on workstation # [id number]
--- NOTE | 2021-11-25 15:31 | Diagnostic Imaging Report ---
INDICATION: Mid back pain. TIME OF EXAM: 2:49 PM. FINDINGS: The curvature and alignment are normal. Vertebral body heights and disc spaces are well-maintained. Pedicles and paraspinous line are intact. No fractures are seen. IMPRESSION: No acute bony abnormality is detected. Dictated by: Dictated on workstation # [id number]
== END ==
LOC: RAD 14:20
PROVIDERS: ATTEND Nurse Practitioner Family
DX: M54.2 Cervicalgia (principal); M54.6 Pain in thoracic spine; N20.0 Calculus of kidney; Z86.79 Personal history of other diseases of the circulatory system
CPT/HCPCS: 72050; 72072; 74018

== ENCOUNTER → 2021-11-26 | Outpatient (CLI) | payer BC ==
--- NOTE | 2021-11-26 08:28 | Diagnostic Imaging Report ---
INDICATION: Mid back pain. Proximal aorta measures 1.8 cm AP by 2.0 cm transverse. Midabdominal aorta measures 1.4 cm AP by 1.5 cm transverse. Distal abdominal aorta measures 1.1 cm AP by 1.5 cm transverse. The right iliac measures 0.9 x 1.1 cm and the left iliac measures 0.7 x 1.1 cm. No periaortic fluid collection is seen. IMPRESSION: No evidence of abdominal aortic aneurysm. Dictated by: Dictated on workstation # [id number]
== END ==
LOC: RAD 07:15
PROVIDERS: ATTEND Nurse Practitioner Family
DX: M54.50 Low back pain, unspecified (principal); Z86.79 Personal history of other diseases of the circulatory system
CPT/HCPCS: 76775

== ENCOUNTER → 2021-12-12 | Outpatient (CLI) | payer BC ==
[~2021-12-12] MED LIST changes: +GADOTERATE 0.5 MMOL/ML (CLARISCAN) 15 ML VIAL IV ONE
--- NOTE | 2021-12-12 10:37 | Diagnostic Imaging Report ---
PROCEDURE: MR imaging abdomen with and without contrast. TECHNIQUE: Multiplanar, multisequence MR imaging of the abdomen was performed with and without contrast. INDICATION: Left flank pain Correlated with abdominal pelvic CT dated 07/06/2019. FINDINGS: There is a tiny subcentimeter cyst nonenhancing in segment 6 of the right hepatic lobe. There is also a tiny 3 to 4 mm nonenhancing cyst in the lateral sector of the left lobe. No solid enhancing or suspicious hepatic lesion, hepatic morphology, signal intensity and enhancement otherwise normal. There is no intra or extrahepatic bile duct dilatation. The gallbladder appeared normal. The pancreas and its duct unremarkable. The peripancreatic fat showed no distortion. The extrahepatic bile duct showed no filling defect. Spleen upper limits of size but stable and nonfocal. There is no adrenal mass. The unobstructed kidneys appeared unremarkable. No evidence for bowel obstruction. There is no ascites. There is no mesenteric or retroperitoneal adenopathy. No basilar pleural fluid. No ascites, abscess, hematoma or acute fluid collection. We note an elevation of the colonic fecal load diffusely correlate for constipation. No focal impaction or overt bowel obstruction. IMPRESSION: Tiny benign hepatic cyst and probable colonic constipation. Otherwise unremarkable pre and postcontrast enhanced abdominal MRI. Dictated by: Dictated on workstation # [id number]
--- NOTE | 2021-12-12 10:49 | Diagnostic Imaging Report ---
PROCEDURE: MRI pelvis with and without contrast. TECHNIQUE: Multiplanar, multisequence MRI of the pelvis was performed with and without contrast. INDICATION: Pelvic calcifications. FINDINGS: The urinary bladder appeared normal. The pelvic sidewalls are normal. The ilioinguinal lymph node chains and stations appeared normal. The anterior abdominal wall appeared intact. The bony pelvis showed no marrow edema. After contrast was administered, there was no abnormal enhancement. There is no dilatation of either ureter. No perivesical edema. No pelvic free fluid. No perirectal edema or inflammatory process. Musculature of the pelvis appeared normal in bulk, morphology, and signal intensity and showed no asymmetry. IMPRESSION: Normal pre- and post-contrasted pelvic MRI. Dictated by: Dictated on workstation # [id number]
== END ==
LOC: RAD 08:00
PROVIDERS: ATTEND Nurse Practitioner Family
DX: K76.89 Other specified diseases of liver (principal)
CPT/HCPCS: 72197; 74183

== ENCOUNTER → 2022-03-16 | Outpatient (CLI) | payer BC ==
[~2022-03-16] MED LIST changes: -GADOTERATE 0.5 MMOL/ML (CLARISCAN) 15 ML VIAL IV ONE
--- NOTE | 2022-03-16 17:05 | Diagnostic Imaging Report ---
INDICATION: Constipation. EXAMINATION: KUB at 4:42 PM. FINDINGS: There is a moderate amount of stool in the colon. The bowel gas pattern is normal. There are no pathologic masses or calcifications. IMPRESSION: Moderate fecal stasis. Dictated by: Dictated on workstation # [id number]
== END ==
LOC: RAD 16:07
PROVIDERS: ATTEND Nurse Practitioner Family
DX: K59.00 Constipation, unspecified (principal)
CPT/HCPCS: 74018

== ENCOUNTER 2023-01-25 09:42 | Outpatient (CLI) | payer BC | END 2023-01-25 10:10 | LOC: SLEEP 09:42 | PROVIDERS: ATTEND Family Medicine | DX: G47.9 Sleep disorder, unspecified (principal); G47.36 Sleep related hypoventilation in conditions classified elsewhere; R06.83 Snoring | CPT/HCPCS: G0399 ==